=== PATIENT | female | born 1955 | race Caucasian/White ===

== ENCOUNTER 2023-12-07 23:58 | Emergency (ER) | payer MEDICARE, OTHER ==
[~2023-12-07] VITALS: Ht 172.7 cm; Wt 95.2 kg
[2023-12-08] MEDS ORDERED: Trimethoprim/Sulfamethoxazole DS Tab PO ONE (00:45)
[2023-12-08] MEDS ORDERED: Diphth,Pertuss(Acell),Tet Vac 0.5 ML VIAL IM ONE (00:45)
[2023-12-08] MEDS ORDERED: MetroNIDAZOLE 500 MG Tab PO ONE (00:45)
[2023-12-08] MEDS ORDERED: FentaNYL Citrate 50 MCG/ML 2 ML Injection IV PRN (00:50)
[2023-12-08 00:59] LABS: BASOPHILS ABSOLUTE AUTO 0.03 K/mm3 (0.00-0.23); BASOPHILS PERCENT AUTO 0 % (0-2); EOSINOPHILS PERCENT AUTO 0 % (0-6); Hematocrit 38.8 % (33.0-51.0); Hemoglobin 12.9 g/dL (11.5-16.0); IMMATURE GRAN ABSOLUTE AUTO 0.12 K/mm3 (0.00-0.10); IMMATURE GRAN PERCENT AUTO 1 % (0-1); LYMPHOCYTES ABSOLUTE AUTO 0.92 K/mm3 (0.84-5.20); LYMPHOCYTES PERCENT AUTO 4 % (21-46); MONOCYTES ABSOLUTE AUTO 1.05 K/mm3 (0.16-1.47); MONOCYTES PERCENT AUTO 5 % (4-13); Mean Corpuscular HGB 32.5 pg (26.0-34.0); Mean Corpuscular HGB Conc 33.2 g/dL (31.5-36.5); Mean Corpuscular Volume 98 fL (80-100); Mean Platelet Volume 9.7 fL (9.1-12.4); NEUTROPHILS ABSOLUTE AUTO 19.33 K/mm3 (1.96-9.15); NEUTROPHILS PERCENT AUTO 90 % (41-73); Platelet Count 237 K/mm3 (150-400); RDW Coefficient Variation 13.1 % (11.7-14.2); RDW Standard Deviation 46.6 fL (35.1-46.3); Red Blood Cell Count 3.97 M/mm3 (3.80-5.20); White Blood Cell Count 21.45 K/mm3 (4.00-11.30)
[2023-12-08 02:45] LABS: Albumin, Blood 3.5 g/dL (3.4-5.0); Albumin/Globulin Ratio 0.8 (0.8-1.8); Calcium, Blood 9.1 mg/dL (8.5-10.1); Creatinine, Blood 0.76 mg/dL (0.40-1.00); Globulin, Blood 4.4 g/dL (2.2-4.0); Potassium, Blood 3.9 mmol/L (3.5-5.5); Total Protein, Blood 7.9 g/dL (6.4-8.2)
[2023-12-08 02:46] LABS: Bilirubin, Total 0.8 mg/dL (0.1-1.0)
[2023-12-08] MEDS ORDERED: METR500 PO (02:47)
[2023-12-08] MEDS ORDERED: SULTRIDS PO (02:47)
[2023-12-08 02:48] LABS: Bun/Creatinine Ratio 39.6 (12.0-20.0)
[2023-12-08] MEDS ORDERED: Acetaminophen 500 MG Tab PO ONE (02:50)
== END 2023-12-08 03:20 | disposition home or self-care (01) ==
LOC: ER 23:58
PROVIDERS: Physician Assistant
DX: L03.114 Cellulitis of left upper limb (principal); L03.313 Cellulitis of chest wall; I89.0 Lymphedema, not elsewhere classified; W55.01XA Bitten by cat, initial encounter; Z88.0 Allergy status to penicillin
CPT/HCPCS: 70450; 80053; 83690; 85025; 90471; 90715; 93971; 96374; 99284-25; A9270; J3010